=== PATIENT | female | born 1945 | race Caucasian/White ===

== ENCOUNTER 2025-06-23 17:44 | Emergency (ER) | payer MEDICARE | END 2025-06-23 20:20 | disposition home or self-care (01) | LOC: CSHERS 17:44 | DX: S93.401A Sprain of unspecified ligament of right ankle, initial encounter (principal); I10 Essential (primary) hypertension; Z95.5 Presence of coronary angioplasty implant and graft; Z86.73 Personal history of transient ischemic attack (TIA), and cerebral infarction without residual deficits; X50.1XXA Overexertion from prolonged static or awkward postures, initial encounter ==